=== PATIENT | female | born 1990 ===

== ENCOUNTER 2021-11-03 09:37 | Emergency (ER) | payer MEDICAID ==
[2021-11-03 09:42] VITALS: BP 118/70
--- NOTE | 2021-11-03 09:44 | Emergency Department Report ---
ED Abdominal Pain HPI - General Chief Complaint: Abdominal Pain Stated Complaint: ABDOMINAL PAIN Time Seen by Provider: 11/03/21 09:43 Source: EMS Mode of arrival: Ambulatory Limitations: No Limitations - History of Present Illness Initial Comments: Patient presents by ambulance secondary to abdominal pain. She complains of epigastric pain described as burning and aching for the last 12 hours. She has no nausea or vomiting associate with this. There is no trauma. She has no dysuria or frequency. She is never had pain like this before. She did not take anything for the pain. She called EMS because of the pain. She has no dysuria frequency. The pain does not radiate or migrate. She has not noticed aggravating or alleviating factors. Patient also reports having a bitemporal headache intermittently for 2 years. She states that in March she went to another hospital. They "did not do anything." She states that her boyfriend told her she needed to have it checked out. There is no trauma. She has no blurry vision or double vision. She has no history of change in frequency or intensity of these headaches over the last 2 years. Severity scale (0 -10): 7 - Related Data Previous Rx's Medication Instructions Recorded Last Taken Type Famotidine [Pepcid] 20 mg PO BID #30 tablet 11/03/21 Unknown Rx SUMAtriptan succinate [Imitrex] 25 mg PO DAILY PRN #20 tablet 11/03/21 Unknown Rx Sucralfate [Carafate] 1 gm PO ACHS #60 tablet 11/03/21 Unknown Rx Allergies Allergy/AdvReac Type Severity Reaction Status Date / Time Unable to Assess Allergy Unverified 11/03/21 09:46 ED Review of Systems ROS: Stated complaint: ABDOMINAL PAIN Other details as noted in HPI Comment: All other systems reviewed and negative Constitutional: denies: fever Eyes: denies: vision change ENT: denies: throat pain Respiratory: denies: cough Cardiovascular: denies: chest pain Endocrine: denies: unexplained weight loss Gastrointestinal: as per HPI Genitourinary: denies: dysuria Musculoskeletal: denies: back pain Skin: denies: rash Neurological: as per HPI Hematological/Lymphatic: denies: easy bruising ED Past Medical Hx - Past Medical History Previous Medical History?: No - Family History Family history: no significant - Medications Home Medications: Home Medications Medication Instructions Recorded Confirmed Last Taken Type Famotidine [Pepcid] 20 mg PO BID #30 tablet 11/03/21 Unknown Rx SUMAtriptan succinate [Imitrex] 25 mg PO DAILY PRN #20 tablet 11/03/21 Unknown Rx Sucralfate [Carafate] 1 gm PO ACHS #60 tablet 11/03/21 Unknown Rx ED Physical Exam - General Limitations: No Limitations, Other ( Pulse ox noted and normal) General appearance: alert, in no apparent distress - Head Head exam: Present: atraumatic, normocephalic - Eye Eye exam: Present: normal appearance, EOMI. Absent: scleral icterus - ENT ENT exam: Present: normal orophraynx, normal external ear exam - Neck Neck exam: Present: normal inspection. Absent: meningismus - Respiratory Respiratory exam: Present: normal lung sounds bilaterally. Absent: respiratory distress - Cardiovascular Cardiovascular Exam: Present: regular rate, normal rhythm - GI/Abdominal GI/Abdominal exam: Present: soft, tenderness ( epigastric). Absent: distended, guarding, rebound - Extremities Exam Extremities exam: Present: normal capillary refill - Back Exam Back exam: Absent: CVA tenderness (R), CVA tenderness (L) - Neurological Exam Neurological exam: Present: alert, oriented X3, CN II-XII intact, normal gait. Absent: motor sensory deficit - Psychiatric Psychiatric exam: Present: normal affect, normal mood - Skin Skin exam: Present: warm, dry ED Course Vital Signs 11/03/21 09:39 Temperature 98.5 F Pulse Rate 79 Respiratory 16 Rate Blood Pressure 118/70 [Left] O2 Sat by Pulse 100 Oximetry - Reevaluation(s) Reevaluation #1: 11/03/21 09:43 EMS was met upon arrival. IV and labs were ordered. Old records reviewed. Reevaluation #2: 11/03/21 11:48 Labs are noted. Patient was discharged. ED Medical Decision Making - Lab Data Result diagrams: 11/03/21 10:32 11/03/21 10:32 - Medical Decision Making Patient presents secondary to headache and abdominal pain. Headache is been chronic for 2 years duration. It is intermittent. Whether she has migraines, cluster headaches, tension headaches, or some other headache is unknown. She certainly does not require ongoing medical management. She does not require CT or MR. She can be treated symptomatically. This particular headache was not thunderclap or abrupt onset in nature. It was not a maximum intensity at the time of onset. I do not believe this represents subarachnoid hemorrhage. She has no meningeal signs. She has no trauma to suggest subdural or epidural hematomas. She has no neurologic symptom or deficit that would suggest space- occupying lesion. She did complain primarily of abdominal pain and does not have evidence of acute hepatitis or pancreatitis. She is not so ectopic is excluded. There is no distention or tympany to suggest bowel obstruction. She had no tenderness in McBurney's point to suggest appendicitis. There is no tenderness or Torres sign in the right or quadrant to suggest biliary colic. She was treated symptomatically and discharged. We did discuss strict return precautions. Critical Care Time: No Critical care attestation.: If time is entered above; I have spent that time in minutes in the direct care of this critically ill patient, excluding procedure time. ED Disposition Clinical Impression: Acute epigastric pain Chronic headache Qualifiers: Headache type: unspecified Intractability: not intractable Qualified Code(s): R51.9 - Headache, unspecified; G89.29 - Other chronic pain Disposition: HOME / SELF CARE / HOMELESS Is pt being admited?: No Condition: Stable Instructions: Abdominal Pain (ED), Form - Headache Record, Abdominal Pain, Adult, [id number], Chronic Pain, Adult Additional Instructions: Drink plenty water. Have a bland diet. Return for problems. See the regular doctor for recheck and further management. If you do not have a regular doctor, follow-up with the referral physician. Prescriptions: Sucralfate [Carafate] 1 gm PO ACHS #60 tablet SUMAtriptan succinate [Imitrex] 25 mg PO DAILY PRN #20 tablet PRN Reason: Headache Famotidine [Pepcid] 20 mg PO BID #30 tablet Referrals: PRIMARY CAREMD [Referring] - 3-5 Days RODY LAST MD [Staff Physician] - 3-5 Days
[2021-11-03] MEDS ORDERED: SUCRALFATE 1 GM/10 ML ORAL LIQD PO SCH (10:00)
[2021-11-03] MEDS ORDERED: FAMOTIDINE 20 MG TAB PO SCH (10:00)
[2021-11-03 10:49] LABS: Basophils % (Auto) 0.3 % (0.0-1.8); Eosinophils % (Auto) 0.4 % (0.0-4.3); Hematocrit 36.7 % (30.3-42.9); Hemoglobin 11.6 gm/dl (10.1-14.3); Lymphocytes # (Auto) 1.1 K/mm3 (1.2-5.4); Lymphocytes % (Auto) 11.5 % (13.4-35.0); Mean Corpuscular HGB Conc 32 % (30-34); Mean Corpuscular Volume 86 fl (79-97); Monocytes # (Auto) 0.7 K/mm3 (0.0-0.8); Monocytes % (Auto) 7.2 % (0.0-7.3); Platelet Count 270 K/mm3 (140-440); Red Blood Count 4.28 M/mm3 (3.65-5.03)
[2021-11-03 11:14] LABS: Alanine Aminotransferase 8 units/L (7-56); Albumin 4.2 g/dL (3.9-5); BUN/Creatinine Ratio 40; Blood Urea Nitrogen 12 mg/dL (7-17); Hemolysis Index 4
== END 2021-11-03 10:00 | disposition home or self-care (01) ==
LOC: ED 09:37
DX: R10.13 Epigastric pain (principal); R51.9 Headache, unspecified; G89.29 Other chronic pain
CPT/HCPCS: 36415; 80053; 83690; 84703; 85025; 99283